=== PATIENT | female | born 1985 | race Caucasian/White ===

== ENCOUNTER → 2023-06-27 15:35 | Outpatient (REF) | payer OTHER, SELFPAY | LOC: PNTC 15:35 | PROVIDERS: ATTENDING PHYSICIAN Obstetrics & Gynecology | DX: P95 Stillbirth (principal); O09.299 Supervision of pregnancy with other poor reproductive or obstetric history, unspecified trimester | CPT/HCPCS: 59025; 76815 ==

== ENCOUNTER → 2023-07-04 15:12 | Outpatient (REF) | payer OTHER, SELFPAY | LOC: PNTC 15:12 | PROVIDERS: ATTENDING PHYSICIAN Obstetrics & Gynecology | DX: O09.299 Supervision of pregnancy with other poor reproductive or obstetric history, unspecified trimester (principal) | CPT/HCPCS: 59025; 76815 ==

== ENCOUNTER → 2023-07-18 13:02 | Outpatient (REF) | payer OTHER, SELFPAY | LOC: PNTC 13:02 | PROVIDERS: ATTENDING PHYSICIAN Obstetrics & Gynecology | DX: P95 Stillbirth (principal) | CPT/HCPCS: 59025; 76816; 76818 ==

== ENCOUNTER 2023-07-21 13:26 | Observation (INO) | payer OTHER, SELFPAY ==
[2023-07-21 14:13] LABS: Urine Albumin Negative (Neg - Trace); Urine Bilirubin Negative (Negative); Urine Character Clear (Clear); Urine Color Yellow; Urine Glucose 1+ (Negative); Urine Ketone 1+ (Negative); Urine Leukocyte Negative (Negative); Urine Nitrite Negative (Negative); Urine Occult Blood Negative (Negative); Urine Urobilinogen Negative (Neg - 1+)
[2023-07-21 14:14] LABS: % Basophils 0.2 % (0-2); % Eosinophils 1.5 % (0-6); % Immature Granulocytes 1.1 % (0-0.5); % Lymphocytes 25.6 % (20.5-51.1); % Monocytes 5.7 % (1.7-9.3); % Neutrophils 65.9 % (42.2-75.2); Absolute Eosinophils 0.1 10^3/uL (0-0.7); Absolute Immature Granulocytes 0.1 10^3/uL (0-0.05); Absolute Lymphocytes 1.4 10^3/uL (1.2-3.4); Absolute Monocytes 0.3 10^3/uL (0.1-0.6); Absolute Neutrophils 3.6 10^3/uL (1.4-6.5); Hematocrit 27.6 % (37.0-47.0); Hemoglobin 10.1 g/dL (12.0-16.0); Mean Corp Hgb Conc. 36.6 g/dL (33.0-37.0); Mean Corpuscular Hgb 32.5 pg (27.0-31.0); Mean Corpuscular Volume 88.7 fL (81.0-99.0); Mean Platelet Volume 11.3 fL (7.4-10.4); Nucleated Red Blood Cells % 0 %; Platelet Count 142 10^3/uL (130-400); Red Blood Cell Count 3.11 10^6/uL (4.20-5.40); Red Cell Dist. Width 13.8 % (11.5-14.5); White Blood Cell Count 5.4 10^3/uL (4.8-10.8)
[2023-07-21 14:42] LABS: Urine Protein < 5 mg/dl
[2023-07-21 14:45] VITALS: BP 115/60; BMI 30.9
[2023-07-21 14:56] LABS: ALT (SGPT) 16 U/L (0-35); AST (SGOT) 26 U/L (14-36); Albumin 3.3 g/dl (3.5-5.0); Alkaline Phosphatase 131 U/L (38-126); Blood Urea Nitrogen 10 mg/dl (7-17); Calcium 9.1 mg/dl (8.4-10.2); Carbon Dioxide 20 mmol/L (22-30); Chloride 105 mmol/L (98-107); Estimated Creatinine Clearance > 125 ml/min; Glucose 137 mg/dl (70-99); Potassium 4.1 mmol/L (3.5-5.1); Sodium 130 mmol/L (135-145); Total Bilirubin 0.6 mg/dl (0.2-1.3); eGFR > 60.00
== END 2023-07-21 15:40 | disposition home or self-care (01) ==
LOC: PNTC-IN 13:26
PROVIDERS: ADMITTING PHYSICIAN Obstetrics & Gynecology; ATTENDING PHYSICIAN Obstetrics & Gynecology
DX: O09.293 Supervision of pregnancy with other poor reproductive or obstetric history, third trimester (principal)
CPT/HCPCS: 80053; 81003; 82570; 84156; 85025; 86850; 86900; 86901; G0378

== ENCOUNTER → 2023-07-25 07:32 | Outpatient (REF) | payer OTHER, SELFPAY | LOC: PNTC 07:32 | PROVIDERS: ATTENDING PHYSICIAN Obstetrics & Gynecology | DX: P95 Stillbirth (principal) | CPT/HCPCS: 59025; 76815 ==

== ENCOUNTER → 2023-07-28 12:01 | Outpatient (REF) | payer OTHER, SELFPAY | LOC: PNTC 12:01 | PROVIDERS: ATTENDING PHYSICIAN Obstetrics & Gynecology | DX: P95 Stillbirth (principal) | CPT/HCPCS: 59025 ==

== ENCOUNTER 2023-07-28 19:28 | Inpatient (IN) | payer OTHER, SELFPAY ==
[2023-07-28 20:01] VITALS: BP 121/71; BMI 31.0
[2023-07-28 20:21] LABS: Glucose - Point of Care 126 mg/dl (70-99)
[2023-07-28] MEDS: CYTOTEC 50 MICROGRAM VAG (20:28)
[2023-07-28 20:30] LABS: % Basophils 0.4 % (0-2); % Eosinophils 1.6 % (0-6); % Immature Granulocytes 1.7 % (0-0.5); % Lymphocytes 33.3 % (20.5-51.1); % Monocytes 6.8 % (1.7-9.3); % Neutrophils 56.2 % (42.2-75.2); Absolute Eosinophils 0.1 10^3/uL (0-0.7); Absolute Immature Granulocytes 0.1 10^3/uL (0-0.05); Absolute Lymphocytes 1.7 10^3/uL (1.2-3.4); Absolute Monocytes 0.4 10^3/uL (0.1-0.6); Absolute Neutrophils 2.9 10^3/uL (1.4-6.5); Hematocrit 26.5 % (37.0-47.0); Hemoglobin 9.9 g/dL (12.0-16.0); Mean Corp Hgb Conc. 37.4 g/dL (33.0-37.0); Mean Corpuscular Hgb 32.5 pg (27.0-31.0); Mean Corpuscular Volume 86.9 fL (81.0-99.0); Mean Platelet Volume 11.2 fL (7.4-10.4); Nucleated Red Blood Cells % 0 %; Platelet Count 148 10^3/uL (130-400); Red Blood Cell Count 3.05 10^6/uL (4.20-5.40); Red Cell Dist. Width 14.1 % (11.5-14.5); White Blood Cell Count 5.2 10^3/uL (4.8-10.8)
[2023-07-29] MEDS: PITOCIN 30 UNITS/NSS 500 ML IV ×2 (00:48→12:57)
[2023-07-29] MEDS: LR 1000 IV ×2 (00:50→12:57)
[2023-07-29 07:20] LABS: Glucose - Point of Care 93 mg/dl (70-99)
[2023-07-29 11:30] LABS: Glucose - Point of Care 80 mg/dl (70-99)
[2023-07-29 15:35] LABS: Glucose - Point of Care 74 mg/dl (70-99)
[2023-07-29 19:37] LABS: Glucose - Point of Care 68 mg/dl (70-99)
[2023-07-29 19:58] LABS: Glucose - Point of Care 80 mg/dl (70-99)
[2023-07-29] MEDS: SUBLIMAZE 100 MCG EPIDURAL (23:38)
[2023-07-29] MEDS: FENTANYL/BUPIVACAINE 100 EPIDURAL (23:38)
[2023-07-30 00:07] LABS: Glucose - Point of Care 88 mg/dl (70-99)
[2023-07-30] MEDS: PRENATAL PLUS 1 TABLET PO (08:57)
[2023-07-30] MEDS: SENOKOT-S 1 TABLET PO (20:48)
[2023-07-30] MEDS: MOTRIN 600 MG PO (20:48)
[2023-07-31 05:11] LABS: Hematocrit 28.6 % (37.0-47.0); Hemoglobin 9.8 g/dL (12.0-16.0)
[2023-07-31] MEDS: MOTRIN 600 MG PO (06:04)
[2023-07-31] MEDS: FEOSOL 325 MG PO (08:11)
[2023-07-31] MEDS: SENOKOT-S 1 TABLET PO (08:12)
[2023-07-31] MEDS: PRENATAL PLUS 1 TABLET PO (08:12)
[2023-08-02 14:53] LABS: Syphilis/T. pallidum Ab Reflex Negative (Negative)
== END 2023-07-31 11:06 | disposition home or self-care (01) | DRG 807 ==
LOC: LDRP 19:28
PROVIDERS: Obstetrics & Gynecology; ADMITTING PHYSICIAN Obstetrics & Gynecology
PROC: 3E0P7VZ Introduction of Hormone into Female Reproductive, Via Natural or Artificial Opening (ICD-10-PCS; 2023-07-28)
PROC: 10907ZC Drainage of Amniotic Fluid, Therapeutic from Products of Conception, Via Natural or Artificial Opening (ICD-10-PCS; 2023-07-29)
PROC: 10E0XZZ Delivery of Products of Conception, External Approach (ICD-10-PCS; 2023-07-30)
DX: O69.1XX0 Labor and delivery complicated by cord around neck, with compression, not applicable or unspecified (principal); Z37.0 Single live birth; O76 Abnormality in fetal heart rate and rhythm complicating labor and delivery; Z3A.37 37 weeks gestation of pregnancy
CPT/HCPCS: 82962; 85014; 85018; 85025; 86780; 86850; 86900; 86901

== ENCOUNTER → 2024-01-11 16:01 | Outpatient (REF) | payer OTHER, SELFPAY | LOC: HWRCS 16:01 | PROVIDERS: ATTENDING PHYSICIAN Internal Medicine Cardiovascular Disease; FAMILY PHYSICIAN Family Medicine | DX: R00.2 Palpitations (principal); Z86.79 Personal history of other diseases of the circulatory system | CPT/HCPCS: 93306 ==